=== PATIENT | female | born 1985 | race African-American/Black ===

== ENCOUNTER 2020-12-16 06:50 | Day surgery (SDC) | payer OTHER ==
[~2020-12-16] VITALS: Ht 167.6 cm; Wt 69.4 kg
[2020-12-16 08:02] VITALS: BP 124/81
[2020-12-16 16:09] VITALS: BP 120/84
== END 2020-12-16 15:50 ==
LOC: DS 06:50 → OR 12:00 → DS 12:00
PROVIDERS: ATTEND Internal Medicine Gastroenterology
DX: I85.10 Secondary esophageal varices without bleeding (principal); K76.6 Portal hypertension; K74.60 Unspecified cirrhosis of liver; B96.81 Helicobacter pylori [H. pylori] as the cause of diseases classified elsewhere
CPT/HCPCS: 43235; J1200; J1610; J2250; J2310; J3010; J3490